=== PATIENT | male | born 1980 | race Caucasian/White ===

== ENCOUNTER → 2017-05-27 | Outpatient (CLI) | payer OTHER ==
[~2017-05-27] MED LIST: PERCOCET 325 MG1 TAB PO
== END ==
LOC: COL.RAD 07:30
DX: G24.9 Dystonia, unspecified (principal); R20.0 Anesthesia of skin; R20.2 Paresthesia of skin
CPT/HCPCS: A9585

== ENCOUNTER 2019-11-19 04:41 | Emergency (ER) | payer OTHER ==
[~2019-11-19] VITALS: Ht 185.4 cm; Wt 106.8 kg
[2019-11-19 04:45] VITALS: TEMP 97.9
[2019-11-19] MEDS ORDERED: COLACE 100100 MG/CAP PO (04:50)
[2019-11-19] MEDS ORDERED: PROBIOTIC DIGE1 EACH PO (04:50)
[2019-11-19] MEDS ORDERED: VTAMINC250TA (04:51)
[2019-11-19] MEDS ORDERED: ONE-A-DAY ESSE1 EACH PO (04:51)
[2019-11-19] MEDS ORDERED: OMEGA-3 1000 MG1 CAP (04:52)
[2019-11-19 05:02] LABS: BASO # 0.1 (0.0-0.2); EOS # 0.4 (0.0-0.7); EOS % 3.5 % (0-4.0); GRAN # 5.6 (1.4-6.5); GRAN % 51.4 % (42.2-75.2); HEMATOCRIT 44.3 % (42.0-52.0); HEMOGLOBIN 14.9 g/dl (13.5-18.0); LYMPH # 3.8 (1.2-3.4); LYMPH % 34.8 % (20.0-51.0); MEAN CELL VOLUME 93 fl (80.0-100.0); MEAN CORPUSCULAR HEMOGLOBIN 31 pg (27.0-31.0); MEAN CORPUSCULAR HGB CONC 34 g/dl (33.0-37.0); MEAN PLATELET VOLUME 9.4 fl (7.4-10.4); MONO % 8.8 % (1.7-9.3); PLATELET COUNT 282 K/mm3 (130-400); RED BLOOD COUNT 4.76 M/mm3 (4.20-5.60); REDCELL DISTRIBUTION WIDTH-CV 12.1 % (11.5-14.5)
[2019-11-19 05:15] LABS: ALANINE AMINOTRANSFERASE 20 U/L (4-49); ALBUMIN 4.4 gm/dL (3.5-5.0); ALKALINE PHOSPHATASE 93 U/L (50-136); ANION GAP 9 mmol/L (7-16); AST,SGOT 19 U/L (15-37); BILIRUBIN,TOTAL 0.5 mg/dL (0.0-1.0); BLOOD UREA NITROGEN 22 mg/dL (9-20); CALCIUM 9.4 mg/dL (8.4-10.2); CARBON DIOXIDE 25 mmol/L (22-30); CHLORIDE 104 mmol/L (98-107); CREATININE, serum 1.22 (0.66-1.25); GLUCOSE 131 mg/dL (74-106); LIPASE 172 U/L (23-300); POTASSIUM 4.1 mmol/L (3.4-5.0); SODIUM 138 mmol/L (137-145); TOTAL PROTEIN 7.3 gm/dL (6.4-8.2)
[2019-11-19 05:16] LABS: C-REACTIVE PROTEIN < 0.5 mg/dL (0.0-0.9)
[2019-11-19 06:02] LABS: COLLECTION METHOD CLEAN CATCH
[2019-11-19 06:09] LABS: HYALINE CAST >12 /lpf; MUCOUS Present /lpf; PH 5 (5-8); SQUAMOUS EPITHELIAL 0-2 /hpf; URINE APPEARANCE Hazy; URINE BACTERIA None Seen /hpf; URINE BILIRUBIN Negative (NEGATIVE); URINE BLOOD 2+ (NEGATIVE); URINE COLOR Yellow; URINE GLUCOSE Negative (NEGATIVE); URINE KETONE Negative (NEGATIVE); URINE LEUKOCYTE ESTERASE Negative (NEGATIVE); URINE NITRATE Negative (NEGATIVE); URINE PROTEIN(semi-quant) Negative (NEGATIVE); URINE RBC >50 /hpf; URINE UROBILINOGEN Negative (NEGATIVE)
[2019-11-19] MEDS ORDERED: ZOFRAN ODT4 MG PO (06:56)
[2019-11-19] MEDS ORDERED: PERCOCET 325 MG1 TA2 PO (06:56)
[2019-11-19 07:40] VITALS: BP 106/70; PULSE 68
== END 2019-11-19 07:56 | disposition home or self-care (01) ==
LOC: COL.ER 04:41 → EDBD 04:42 → COL.ER 04:42
PROVIDERS: Emergency Medicine
DX: N23 Unspecified renal colic (principal); R31.9 Hematuria, unspecified; F17.200 Nicotine dependence, unspecified, uncomplicated
CPT/HCPCS: J1170; J1885; J2405; J7030; Q9967